=== PATIENT | female | born 1945 | race Caucasian/White ===

== ENCOUNTER 2017-06-15 08:32 | Inpatient (IN) | payer MEDICARE, BC ==
[~2017-06-15] VITALS: Ht 154.9 cm; Wt 75.5 kg
[2017-06-15] MEDS ORDERED: SODIUM CHLORIDE 0.9% 1,000 ML IV ONE ×2 (09:17→11:21)
[2017-06-15] MEDS ORDERED: DIPH,PERTUSS(ACELL),TET VAC/PF 0.5 ML IM-VACC ONE ×2 (09:24→09:30)
[2017-06-15 09:30] LABS: HEMATOCRIT 40.5 % (34.6-47.8); HEMOGLOBIN 13.8 g/dL (11.7-16.4); WHITE BLOOD COUNT 16.5 x10^3/uL (3.4-10)
[2017-06-15] MEDS ORDERED: SODIUM CHLORIDE FLUSH 10ML SYR IVF ONE (09:30)
[2017-06-15] MEDS ORDERED: LIDOCAINE 1%, 20ML INFIL ONE (09:30)
[2017-06-15] MEDS ORDERED: PROPOFOL 10 MG/ML, 20ML ONE ×2 (09:40→19:08)
[2017-06-15] MEDS ORDERED: LIDOCAINE 1%, 20ML ONE (09:40)
[2017-06-15] MEDS ORDERED: DILT180C9 PO (09:53)
[2017-06-15] MEDS ORDERED: VALS320T2 PO (09:53)
[2017-06-15] MEDS ORDERED: ASPI-496 PO (09:53)
[2017-06-15] MEDS ORDERED: OMEP20TA62 PO (09:53)
[2017-06-15] MEDS ORDERED: OMEG1CAP34 PO (09:53)
[2017-06-15] MEDS ORDERED: METF500T4 PO (09:53)
[2017-06-15] MEDS ORDERED: SIMV40TA3 PO (09:53)
[2017-06-15] MEDS ORDERED: ESTR0.3T PO (09:53)
[2017-06-15] MEDS ORDERED: DILT360C26 PO (09:58)
[2017-06-15 10:00] LABS: BLOOD UREA NITROGEN 27 mg/dL (7-18)
[2017-06-15] MEDS ORDERED: ONDANSETRON 2MG/ML, 2ML IVPush PRN ×3 (11:30→19:00)
[2017-06-15] MEDS ORDERED: HYDROmorphone 1 MG/ML, 1ML IVPush PRN (11:30)
[2017-06-15] MEDS ORDERED: SODIUM CHLORIDE FLUSH 10ML SYR IVF PRN (11:30)
[2017-06-15] MEDS ORDERED: MORPHINE SULFATE 4 MG/ML, 1ML IVPush PRN (14:00)
[2017-06-15] MEDS ORDERED: hydrALAzine 20 MG/ML, 1ML IVPush PRN (14:00)
[2017-06-15 16:13] VITALS: BP 146/79
[2017-06-15] MEDS: D5%-0.9% NACL 1,000 ML IV SCH ×2 (17:17→22:00)
[2017-06-15] MEDS: INSULIN ASPART 100 UNITS/ML, PEN SQ-INSULIN SCH ×2 (17:17→21:00)
[2017-06-15 18:52] LABS: PATH.CAST-FLAG NOT PRESENT; SPERM-FLAG NOT PRESENT; SRC-FLAG NOT PRESENT; XTAL-FLAG NOT PRESENT; YLC-FLAG NOT PRESENT
[2017-06-15] MEDS ORDERED: hydrALAzine 20 MG/ML, 1ML IV PRN (19:00)
[2017-06-15] MEDS ORDERED: ACETAMINOPHEN 325 MG TABLET PO PRN (19:00)
[2017-06-15] MEDS ORDERED: OXYcodone 5 MG/5 ML ORAL.SOL UDC PO PRN (19:00)
[2017-06-15] MEDS ORDERED: HYDROcodone/APAP 7.5-325MG/15ML UDC PO PRN (19:00)
[2017-06-15] MEDS ORDERED: ALBUTEROL SULFATE 2.5 MG/3 ML NPPB PRN (19:00)
[2017-06-15] MEDS ORDERED: FENTANYL PF 100 MCG/2ML IV PRN (19:00)
[2017-06-15] MEDS ORDERED: HYDROmorphone 1 MG/ML, 1ML IV PRN (19:00)
[2017-06-15] MEDS ORDERED: PROMETHAZINE 25 MG/ML, 1ML IV PRN (19:00)
[2017-06-15] MEDS ORDERED: LABETALOL 5MG/ML, 20ML IV PRN (19:00)
[2017-06-15] MEDS ORDERED: METOPROLOL 1 MG/ML, 5ML IV PRN (19:00)
[2017-06-15] MEDS ORDERED: KETOROLAC 30 MG/1 ML IV PRN (19:00)
[2017-06-15] MEDS ORDERED: EPHEDRINE 50 MG/ML, 1ML IVPush PRN (19:00)
[2017-06-15] MEDS ORDERED: MIDAZOLAM 1 MG/ML, 2ML ONE (19:03)
[2017-06-15] MEDS ORDERED: FENTANYL PF 100 MCG/2ML ONE ×2 (19:03→20:18)
[2017-06-15] MEDS ORDERED: ONDANSETRON 2MG/ML, 2ML ONE (19:08)
[2017-06-15] MEDS ORDERED: SUCCINYLCHOLINE 20 MG/ML, 10ML ONE (19:08)
[2017-06-15] MEDS ORDERED: CEFAZOLIN 1,000 MG ONE (19:08)
[2017-06-15] MEDS ORDERED: DEXAMETHASONE 4 MG/ML, 1ML ONE (19:08)
[2017-06-15] MEDS ORDERED: ROCURONIUM 10 MG/ML ONE (19:08)
[2017-06-15] MEDS ORDERED: BUPIVACAINE/PF 0.5% ONE (20:31)
[2017-06-15] MEDS ORDERED: EPINEPHRINE 1 MG/ML, 1ML ONE (20:31)
[2017-06-15] MEDS ORDERED: BUPIVACAINE/PF 0.5% INFIL ONE (20:39)
[2017-06-15] MEDS ORDERED: EPINEPHRINE 1 MG/ML, 1ML INFIL ONE (20:41)
[2017-06-15] MEDS ORDERED: HYDROcodone/APAP 10/325 MG TABLET PO PRN (21:00)
[2017-06-15] MEDS ORDERED: OXYcodone/APAP 5/325MG TABLET PO PRN (21:00)
[2017-06-15] MEDS ORDERED: MEPERIDINE/PF 25MG/0.5ML ONE (21:09)
[2017-06-15] MEDS ORDERED: MEPERIDINE/PF 25MG/0.5ML IVPush PRN (21:30)
[2017-06-15] MEDS ORDERED: MEPERIDINE/PF 25MG/0.5ML IVPush ONE (21:30)
[2017-06-15] MEDS: SIMVASTATIN 40 MG TABLET PO SCH (22:20)
[2017-06-15] MEDS: OMEPRAZOLE 20 MG CAPSULE.DR PO SCH (22:20)
[2017-06-16 03:24] VITALS: BP 157/63
[2017-06-16] MEDS: CEFAZOLIN PMX 1GM/50ML 50 ML IV SCH ×2 (04:11→11:46)
[2017-06-16 05:02] LABS: BLOOD UREA NITROGEN 17 mg/dL (7-18)
[2017-06-16 05:32] LABS: HEMATOCRIT 35.3 % (34.6-47.8); HEMOGLOBIN 11.9 g/dL (11.7-16.4); WHITE BLOOD COUNT 9.1 x10^3/uL (3.4-10)
[2017-06-16] MEDS: D5%-0.9% NACL 1,000 ML IV SCH (06:00)
[2017-06-16] MEDS: ENOXAPARIN 30 MG/0.3 ML SQ SCH (06:05)
[2017-06-16] MEDS: INSULIN ASPART 100 UNITS/ML, PEN SQ-INSULIN SCH ×4 (06:08→20:51)
[2017-06-16 06:49] VITALS: BP 145/74
[2017-06-16] MEDS: ASPIRIN 81 MG TABLET EC PO SCH (08:30)
[2017-06-16] MEDS: OMEPRAZOLE 20 MG CAPSULE.DR PO SCH ×2 (08:31→20:51)
[2017-06-16] MEDS: SODIUM CHLORIDE 0.9% 1,000 ML IV SCH ×2 (10:13→20:51)
[2017-06-16 12:40] VITALS: BP 144/72
[2017-06-16 19:50] VITALS: BP 146/72
[2017-06-16] MEDS: SIMVASTATIN 40 MG TABLET PO SCH (20:51)
[2017-06-17 04:35] VITALS: BP 157/74
[2017-06-17] MEDS: SODIUM CHLORIDE 0.9% 1,000 ML IV SCH (06:18)
[2017-06-17] MEDS: ENOXAPARIN 30 MG/0.3 ML SQ SCH (06:18)
[2017-06-17] MEDS: INSULIN ASPART 100 UNITS/ML, PEN SQ-INSULIN SCH ×4 (06:18→20:32)
[2017-06-17 07:28] VITALS: BP 160/78
[2017-06-17] MEDS: OMEPRAZOLE 20 MG CAPSULE.DR PO SCH ×2 (07:51→20:28)
[2017-06-17] MEDS: ASPIRIN 81 MG TABLET EC PO SCH (07:51)
[2017-06-17 09:22] LABS: BLOOD UREA NITROGEN 15 mg/dL (7-18)
[2017-06-17] MEDS ORDERED: POTASSIUM CHLORIDE 20 MEQ TAB.ER.PRT PO ONE (10:00)
[2017-06-17 14:19] VITALS: BP 142/78
[2017-06-17] MEDS: DILTIAZEM CD 180 MG CAP.ER.24H PO SCH (15:46)
[2017-06-17 19:45] VITALS: BP 122/78
[2017-06-17] MEDS: SIMVASTATIN 40 MG TABLET PO SCH (20:28)
[2017-06-18 01:59] VITALS: BP 113/63
[2017-06-18] MEDS: ENOXAPARIN 30 MG/0.3 ML SQ SCH (05:04)
[2017-06-18] MEDS: INSULIN ASPART 100 UNITS/ML, PEN SQ-INSULIN SCH ×3 (06:34→16:00)
[2017-06-18 07:00] VITALS: BP 146/55
[2017-06-18] MEDS: DILTIAZEM CD 180 MG CAP.ER.24H PO SCH (08:07)
[2017-06-18] MEDS: ASPIRIN 81 MG TABLET EC PO SCH (08:07)
[2017-06-18] MEDS: OMEPRAZOLE 20 MG CAPSULE.DR PO SCH (08:07)
[2017-06-18 12:45] VITALS: BP 110/63
[2017-06-18] MEDS ORDERED: HYDR-3307 PO (13:23)
[2017-06-18] MEDS ORDERED: ENOX40SY4 SQ (13:23)
[2017-06-18 16:15] VITALS: BP 146/55
[2017-06-19] MEDS ORDERED: ENOXAPARIN 40 MG/0.4 ML SQ SCH (06:00)
== END 2017-06-18 16:45 | DRG 492 ==
LOC: ED 11:20 → EDIP 11:21 → ED 11:23 → 4NOR 12:37
PROVIDERS: ADMIT Internal Medicine; ATTEND Internal Medicine
PROC: 0QSH04Z Reposition Left Tibia with Internal Fixation Device, Open Approach (ICD-10-PCS; 2017-06-15)
PROC: 0SSGXZZ Reposition Left Ankle Joint, External Approach (ICD-10-PCS; 2017-06-15)
PROC: 09Q00ZZ Repair Right External Ear, Open Approach (ICD-10-PCS; 2017-06-15)
PROC: 0QSK04Z Reposition Left Fibula with Internal Fixation Device, Open Approach (ICD-10-PCS; principal; 2017-06-15 19:00)
DX: S82.852A Displaced trimalleolar fracture of left lower leg, initial encounter for closed fracture (principal); N17.0 Acute kidney failure with tubular necrosis; E87.1 Hypo-osmolality and hyponatremia; E86.0 Dehydration; W18.2XXA Fall in (into) shower or empty bathtub, initial encounter; E11.9 Type 2 diabetes mellitus without complications; E78.5 Hyperlipidemia, unspecified; E86.1 Hypovolemia; S93.05XA Dislocation of left ankle joint, initial encounter; I10 Essential (primary) hypertension; K44.9 Diaphragmatic hernia without obstruction or gangrene; S01.311A Laceration without foreign body of right ear, initial encounter; Z80.0 Family history of malignant neoplasm of digestive organs; Z82.49 Family history of ischemic heart disease and other diseases of the circulatory system; Z87.891 Personal history of nicotine dependence; Z98.82 Breast implant status; Z90.710 Acquired absence of both cervix and uterus; Y93.89 Activity, other specified; Y92.091 Bathroom in other non-institutional residence as the place of occurrence of the external cause; Y99.8 Other external cause status
CPT/HCPCS: 36415; 70450; 76001; 80048; 81001; 82040; 82570; 82962; 83935; 84300; 85025; 85610; 85730; 87086; 87205; 90471; 90715; 93005; 96360; 96361; C1713; J0171; J0690; J1100; J1650; J2175; J2250; J2405; J2704; J3010; J3490; J7042; J0330; J7030

== ENCOUNTER 2021-06-19 06:11 | Day surgery (SDC) | payer MEDICARE, BC ==
[~2021-06-19] VITALS: Ht 154.9 cm; Wt 54.4 kg
[~2021-06-19 06:11] MED LIST: ASPI-496 PO; DILT-86 PO; DILT360C26 PO; ENOX40SY4 SQ; ESTR0.3T PO; HYDR-3248 PO; METF500T17 PO; OMEG1CAP34 PO; OMEP20TA62 PO; SIMV40TA20 PO; VALS320T2 PO
[2021-06-19 06:58] VITALS: BP 164/84
[2021-06-19 07:21] VITALS: BP 140/70
[2021-06-19 08:35] LABS: INTERNATIONAL NORMALIZED RATIO 1.15 (0.93-1.1); PROTHROMBIN TIME 12.2 Seconds (9.6-11.5)
[2021-06-19] MEDS ORDERED: FENTANYL PF 100 MCG/2ML ONE (08:47)
[2021-06-19] MEDS ORDERED: MIDAZOLAM 1 MG/ML, 5ML ONE (08:47)
[2021-06-19] MEDS ORDERED: NALOXONE 1 MG/ML, 2ML ONE (08:47)
[2021-06-19] MEDS ORDERED: FLUMAZENIL 0.1 MG/1 ML, 5ML ONE (08:47)
== END 2021-06-19 10:25 | disposition home or self-care (01) ==
LOC: OUT 06:11
PROVIDERS: ATTEND Internal Medicine Nephrology
DX: E11.22 Type 2 diabetes mellitus with diabetic chronic kidney disease (principal); I12.9 Hypertensive chronic kidney disease with stage 1 through stage 4 chronic kidney disease, or unspecified chronic kidney disease; N18.4 Chronic kidney disease, stage 4 (severe); D63.1 Anemia in chronic kidney disease; K21.9 Gastro-esophageal reflux disease without esophagitis; I25.10 Atherosclerotic heart disease of native coronary artery without angina pectoris; Z79.82 Long term (current) use of aspirin; Z79.84 Long term (current) use of oral hypoglycemic drugs; Z79.899 Other long term (current) drug therapy; Z87.891 Personal history of nicotine dependence; Z88.1 Allergy status to other antibiotic agents; Z98.890 Other specified postprocedural states
CPT/HCPCS: 50200; 77012; 82962; 85610; 88300; 99156; 99157; J2250; J3010; 88305; 88313; 88346; 88348; 88350; J2310